=== PATIENT | male | born 1950 | race Caucasian/White ===

== ENCOUNTER 2017-01-04 14:41 | Emergency (ER) | payer OTHER ==
[~2017-01-04] VITALS: Ht 175.3 cm; Wt 75.9 kg
[~2017-01-04 14:41] MED LIST: ASPIRIN E.C.81 M1 PO; Antivert PO; DILAUDID2 MG PO; MEDROL DOSEPAK4 MG PO; MOTRIN600 MG PO; PROGRAF1 MG PO
[2017-01-04] MEDS ORDERED: TRAMADOL HCL50 MG PO (16:22)
[2017-01-04 16:28] VITALS: BP 153/85
== END 2017-01-04 16:29 | disposition home or self-care (01) ==
LOC: EME 14:41
DX: S63.91XA Sprain of unspecified part of right wrist and hand, initial encounter (principal); W19.XXXA Unspecified fall, initial encounter; Z94.4 Liver transplant status
CPT/HCPCS: 73130; 99281; 99283